=== PATIENT | male | born 1955 | race Two or more races ===

== ENCOUNTER 2020-05-24 12:25 | Emergency (ER) | payer OTHER ==
[~2020-05-24] VITALS: Ht 185.4 cm; Wt 120.2 kg
[2020-05-24] MEDS ORDERED: COZAAR100 MG (12:54)
[2020-05-24] MEDS ORDERED: NORVASC2.5 MG (12:54)
== END 2020-05-24 17:53 | disposition home or self-care (01) ==
LOC: ER 12:25
DX: L03.116 Cellulitis of left lower limb (principal); I80.02 Phlebitis and thrombophlebitis of superficial vessels of left lower extremity; S90.02XS Contusion of left ankle, sequela; W18.09XS Striking against other object with subsequent fall, sequela

== ENCOUNTER 2020-05-26 11:49 | Emergency (ER) | payer OTHER ==
[~2020-05-26] VITALS: Ht 185.4 cm; Wt 120.2 kg
[~2020-05-26 11:49] MED LIST: COZAAR100 MG; NORVASC2.5 MG
== END 2020-05-26 16:06 | disposition home or self-care (01) ==
LOC: ER 11:49
DX: L03.116 Cellulitis of left lower limb (principal); I87.2 Venous insufficiency (chronic) (peripheral); S80.12XS Contusion of left lower leg, sequela; V19.88XS Pedal cyclist (driver) (passenger) injured in other specified transport accidents, sequela

== ENCOUNTER 2020-06-14 11:31 | Emergency (ER) | payer OTHER ==
[~2020-06-14] VITALS: Ht 185.4 cm; Wt 127.0 kg
[2020-06-14] MEDS ORDERED: LIPITOR20 MG PO (11:46)
== END 2020-06-14 14:29 | disposition home or self-care (01) ==
LOC: ER 11:31
DX: R60.0 Localized edema (principal); S80.12XS Contusion of left lower leg, sequela; X58.XXXS Exposure to other specified factors, sequela; I10 Essential (primary) hypertension

== ENCOUNTER → 2023-01-29 | Emergency (ER) | payer OTHER ==
[~2023-01-29] VITALS: Ht 185.4 cm; Wt 117.9 kg
[~2023-01-29] MED LIST changes: +LIPITOR20 MG PO
== END | disposition home or self-care (01) ==
LOC: ER 18:55
PROVIDERS: Emergency Medicine
DX: B34.9 Viral infection, unspecified (principal); Z88.0 Allergy status to penicillin; Z20.822 Contact with and (suspected) exposure to COVID-19